=== PATIENT | female | born 1960 | race Caucasian/White ===

== ENCOUNTER 2017-02-24 08:59 | Day surgery (SDC) | payer MEDICARE, MEDICAID ==
[~2017-02-24 08:59] MED LIST: ALBU8.5H2 INHALATION; ALPR0.5T8 PO; AMIT100T2 PO; DULO30CA50 PO; HYDR25TA4 PO; LEVO750T9 PO; Lidocaine Topical 2% 30 mL Jelly ONE; MECL-114 PO; METO25TA6 PO; OMEP40CA36 PO; OXYC1TAB24 PO; PRE20 PO; PREG150C PO; ROTI1PAT8 TOPICAL; TIZA4TAB4 PO; VARE1TAB21 PO
[2017-03-06] MEDS ORDERED: NORE-74 PO (15:46)
[2017-03-06] MEDS ORDERED: HYDR-4003 PO (15:46)
[2017-03-06] MEDS ORDERED: SUMA20SP2 NS (15:46)
== END 2017-02-24 23:59 | disposition home or self-care (01) ==
LOC: END 08:59
PROVIDERS: ATTEND Internal Medicine Gastroenterology
DX: K44.9 Diaphragmatic hernia without obstruction or gangrene (principal); R07.89 Other chest pain

== ENCOUNTER 2017-03-10 07:10 | Day surgery (SDC) | payer MEDICARE, MEDICAID ==
[~2017-03-10] VITALS: Ht 165.1 cm; Wt 105.2 kg
[~2017-03-10 07:10] MED LIST changes: -ALBU8.5H2 INHALATION; -ALPR0.5T8 PO; +HYDR-4003 PO; -HYDR25TA4 PO; -LEVO750T9 PO; +Lactated Ringer's 1,000 ML IV ONE; -Lidocaine Topical 2% 30 mL Jelly ONE; +NORE-74 PO; -OXYC1TAB24 PO; -PRE20 PO; +SUMA20SP2 NS; -VARE1TAB21 PO
[2017-03-10] MEDS ORDERED: Ketamine 10 mg/mL 20 mL Inj ONE (07:11)
[2017-03-10] MEDS ORDERED: Propofol 10,000 mCg/mL 20 mL Inj ONE (07:11)
[2017-03-10 07:48] VITALS: BP 137/81; PULSE 73; RESP 16; O2SAT 100
--- NOTE | 2017-03-10 08:15 | PCM.HPANE ---
Patient Data Date of Service: March 10, 2017 Surgeon Admitting Provider: Attending Provider:Jacob Penaloza MD Primary Care Physician:Danial Daniels MD Other Provider:Mookie Kimbrough Anesthesia Reason for Visit Colon Cancer Screening Ht/WT & BMI Height (Feet): 5 Height (Inches): 5 Weight (Kilograms): 105.23 Body Mass Index 38.00 Allergies Coded Allergies: No Known Allergies (Verified , 03/12/16) Past Anesthesia History Anesthesia History: Denies:: Abnormal Airway, Anesthesia Reactions, Difficult Intubation, Fam Anesthesia Reaction, Fam Malignant Hypertherm, Malignant Hyperthermia Diabetes History Hx Diabetes?: No MRSA MRSA: No Medications Hypertension Medication: No Home Meds Incl Beta Lizzy: Yes Date Beta Lizzy Taken: March 10, 2017 Time Beta Lizzy Taken: 399 Previous Beta Lizzy Dose >24: Previous Dose <24 Hours Active Scripts Metoprolol Tartrate 25 Mg Qdtnnj84 Mg PO BID PRN palpitations #30 TABLET Ref 0 Prov:Baudilio Bryant MD 02/01/16 Reported Medications Sumatriptan 20 Mg Spray50 Mg NS DAILY 03/06/17 Norethindrone AC-Eth Estradiol (Norethind-Eth Estrad 1-0.02 mg)1 Each Tablet1 Each PO DAILY 03/06/17 Hydrocodone-Acetaminophen 5-325 mg 1 Each Tablet1 Tablet PO Q4H PRN For Pain Ref 0 03/06/17 Duloxetine 30 Mg Capsule.dr30 Mg PO DAILY Ref 0 03/12/16 Pregabalin (Lyrica)150 Mg Hujwgeb080 Mg PO BID 30 Days Ref 0 09/25/15 Meclizine (Bonine)25 Mg Tab.chew25 Mg PO QID PRN For Dizziness 09/25/15 Omeprazole 40 Mg Capsule.dr40 Mg PO BID 30 Days Ref 0 03/28/15 Tizanidine 4 Mg Tablet4 Mg PO TID 30 Days 05/28/14 Rotigotine (Neupro)1 Each Patch.td243 Mg TOPICAL DAILY 05/28/14 Amitriptyline 100 Mg Yzwpnj462 Mg PO HS Ref 0 05/28/14 Discontinued Reported Medications Varenicline Tartrate (Chantix)1 Each Tab.ds.pk1 Each PO BID PRN PRN 03/12/16 Alprazolam 0.5 Mg Tablet0.5 Mg PO BID PRN For Anxiety Ref 0 03/12/16 Hydrochlorothiazide 25 Mg Qublrs68 Mg PO DAILY 30 Days Ref 0 03/19/15 Discontinued Scripts Prednisone (PredniSONE)20 Mg Ibiqqm17 Mg PO DAILY 6 Days Ref 0 Prov:Chapito Segovia MD 10/11/16 Albuterol HFA (Proair HFA)8.5 Gm Hfa.aer.ad2 Puffs INHALATION Q4H #1 INHALER Prov:Chapito Segovia MD 10/11/16 Levofloxacin (Levaquin)750 Mg Cghfmj885 Mg PO DAILY #7 TABLET Prov:Chapito Segovia MD 10/11/16 oxyCODONE-Acetaminophen 5-325 mg 1 Each Tablet1-2 Tab PO Q6H PRN For Pain #30 TABLET Prov:Cherrie Donald MD 09/25/15 History History of ENT Problems?: Yes HEENT History: Positive for:: Sinus Problem Denies:: Abnormal Airway Cataracts Difficult Intubation Dysphagia Hearing Problem Denture Type: Full- Upper Partial- Lower Teeth Condition: Within Normal Limits (teeth that are present are intact) Hx of Heart Problems?: Yes Cardiovascular History: Positive for:: Cardiac Surgery (HEART CATH 07/2011-WNL ) Chest Pain (MANY ED VISITS/BOUTS OF CHEST PAIN-ALL TESTING CONSISTENTLY WNL) Edema Hypertension Denies:: AICD Atrial Fibrillation Congestive Heart Failure Heart Murmur (ECHO 05/2014 EF 60-65%) Irregular Heartbeat Pacemaker Thrombophlebitis Valvular Heart Disease Hx of Respiratory Problem?: No Respiratory History: Positive for:: Dyspnea (BESS) Use of C-PAP Machine (EVNA+ SLEEP STUDY 07/2011) Denies:: Asthma COPD Chest Surgery Emphysema Hemoptysis Pneumonia Tuberculosis Hx Neurologic Problems?: Yes Neurological History: Positive for:: Dizziness (HX OF SYNCOPE) Headaches Denies:: Alzheimer's Disease CVA Dementia Parkinson's Disease Seizures Hx of GI Problems?: No Hx of Problems?: No Genitourinary History: Denies:: HX of Hemodialysis Kidney Stones Urinary Tract Infection HX of Peritoneal Dialysis: No Female Hx: Denies:: Currently Endometriosis Pelvic Inflammatory Problems with Breasts? Skin History: Denies:: History Skin Disorders? Pressure Ulcers Hx Musculoskeletal Problems?: Yes Musculoskeletal History: Positive for:: Back Injury (C/OF BACK/NECK PAIN, WEAKNESS IN UPPER EXTREMITIES) Joint Replacement (S/P BILAT TKA'S) Musculoskeletal Trauma (S/P BILAT KNEE SCOPES,FOOT/ANKLE RPR) Hx of Psycho/Social Problems?: Yes Psycho Social History: Positive for:: Anxiety Hx Depression Denies:: Bipolar Disorder Suicide Attempt Hx Surgeries?: Yes (BILAT TKA'S,BILAT KNEE SCOPES,HEART CATH,APPY,XIOMARA, GASTRIC BYPASS,FOOT/ANK) Hx Any Other Health Problems?: Yes Other History: Positive for:: Hospitalization (sinus infection, cp) Denies:: Cancer Endocrine Disease Thyroid Disease History Blood Transfusions: Denies:: Blood Transfuse Reaction Blood Transfusions Hx Diabetes: No Hx Alcohol Use: NoHx Substance Use: Yes (MEDICAL MARIJUANA) Smoking Status: Current Every Day Smoker Light Tobacco Smoker Have You Smoked inLast 12 mo: Yes Stop/Bang Treated for Sleep Apnea?: Yes Do You Have a CPAP Machine?: Yes EVAN Category 4 OutPt Procedure: Yes Risk Assessment Category Category 1A: Patient has history of documented sleep apnea, and HAS NOT received any narcotic, sedative or anesthesia administration during this stay. Category 1B: Patient has history of documented sleep apnea, and HAS received any narcotic , sedative or anesthesia administration during this stay Category 2: Patient has SUSPECTED Obstructive Sleep Apnea, and HAS received any narcotic , sedative or anesthesia administration during this stay. Category 3: Patient has SUSPECTED Obstructive Sleep Apnea and HAS NOT received narcotic, sedative or anesthesia administration during this stay. Category 4: Outpatient in Procedural Areas with known sleep apnea or who screen positive for High Risk via the STOP/BANG questionnaire. Exam Exam Vital Signs Vital Signs Date Time Temp Pulse Resp B/P Pulse Ox O2 Delivery O2 Flow Rate FiO2 03/10/17 07:48 73 16 137/81 100 Room Air General Appearance: Alert, Oriented X3, Cooperative, No Acute Distress HEENT/AIRWAY: MP 2 Lungs: Clear to Auscultation, Normal Air Movement Heart: Exam Unremarkable, Regular Rate/Rhythm, No Murmurs/Rubs/Gallops Meds/Labs/Diagnostics Admission Meds Current Medications Lactated Ringer's (Lr) 1,000 ml @ 10 mls/hr Q24H ONCE IV Last administered on 03/10/17t 07:54; Start 03/10/17 at 06:00; Stop 03/11/17 at 05:59 Plan Impression Patient chart reviewed, patient interviewed and anesthestic plan with risks, benefits, and alternatives discussed, and informed consent obtained. NPO per Anesth. Guidelines: Yes ASA Physical Status: ASA2 Mod Systemic Disease Anesthetic Plan: TIVA Bene/Risks/Altern/Consents: Yes HP Complete Prior to Induction: Yes Mina Shipman MD March 10, 2017 08:15
[2017-03-10 09:01] VITALS: BP 118/78; PULSE 63; RESP 14; O2SAT 100
[2017-03-10 09:12] VITALS: BP 117/69; PULSE 70; RESP 16; O2SAT 95
--- NOTE | 2017-03-10 09:40 | ENDO ---
[address] [address] ENDOSCOPY PROCEDURE PATIENT: FRANSISCO SERRATO : 1960 MR#: [id number] ADMIT: 03/10/2017 JOB ID: [id number] PROCEDURE: Colonoscopy with cold forceps polypectomies. INDICATIONS: A 56-year-old female who reports for colon cancer screening. EQUIPMENT: [id number] SEDATION: Monitored anesthesia is provided by Dr. Papa Shipman. COMPLICATIONS: None identified. BOWEL PREPARATION: Fair, adequate exam. PROCEDURE INFO: After the risks and benefits were explained, written and verbal informed consent was obtained. The patient was brought into the endoscopy suite and placed into the left lateral decubitus position. Sedation was achieved as above. A digital rectal examination accomplished. Mild internal hemorrhoids noted. The scope was introduced into the rectum and advanced to the cecum as identified by the appendiceal orifice and ileocecal valve. The scope was slowly withdrawn to carefully examine the mucosa for any defects or lesions. Multiple direct views were made through the dentate line for exclusion of pathology. The colon was decompressed. The scope removed from the patient who tolerated the procedure well. FINDINGS: There were a couple of diminutive polyps removed with cold forceps from the rectum. There was a moderate internal hemorrhoids with hypertrophied anal papillae. No other significant pathology was identified throughout the colon. ENDOSCOPIC DIAGNOSES: 1. Hemorrhoids. 2. Diminutive rectal polyps. RECOMMENDATIONS: 1. Await histopathology. 2. If adenomatous features are found in either of these polyps then repeat colonoscopy 5 years' time. Otherwise repeat colonoscopy 10 years, sooner as needed.
--- NOTE | 2017-03-10 16:08 | PCM.ANEP1 ---
Post Anesthesia Phase 1 PACU Phase 1 Assessment Date of Service: March 10, 2017 Vital Signs Vital Signs Date Time Temp Pulse Resp B/P Pulse Ox O2 Delivery O2 Flow Rate FiO2 03/10/17 09:12 70 16 117/69 95 Room Air 03/10/17 09:01 36.5 63 14 118/78 100 Room Air Anesthetic Administered: TIVA Level of Alertness: Awake, talking MADDOX's with Equal Strength: Yes Pain: No Nausea or Vomiting: No Cardiovascular Function and Hy: Yes Oxygen Delivery: Room Air Lungs: Clear to Auscultation, Normal Air Movement Dermatome Level: Full Sensation Complications: No Follow up Care: No Mina Shipman MD March 10, 2017 16:08
--- NOTE | 2017-03-11 16:17 | PATH ---
SURGICAL PATHOLOGY Attending Physician:Rafi Steele CASE STATUS: Signed Out PATIENT NAME: FRANSISCO SERRATO PID: [id number] : 1960 DATE COLLECTED:03/10/2017 16:52 SPECIMEN: Rectum, Biopsy CLINICAL HISTORY: POLYP 1). RECTAL POLYPS X2 FINAL DIAGNOSIS: Rectal Polyps, Biopsies: Tubular adenoma x 1; negative for high-grade dysplasia. Hyperplastic polyp x1. ICD10: K63.5 GROSS DESCRIPTION: The specimen is received in one formalin filled container labeled with the patient's name, sublabeled "rectal polyps" and consists of 2 portions of tissue which aggregate to 0.3 x 0.2 x 0.2 CM. The specimen is entirely submitted in one cassette. 03/10/2017 [facility] ICD-9 CODES: CPT CODES: 1: 43510 Electronically Signed Out Lizbeth Gibbs MD [facility] Pathology [facility] [address], [place] [address] Technical component performed at [facility], [facility] [address], [place], [address]
== END 2017-03-10 23:59 | disposition home or self-care (01) ==
LOC: END 07:10
PROVIDERS: ATTEND Internal Medicine Gastroenterology
DX: Z12.11 Encounter for screening for malignant neoplasm of colon (principal); D12.8 Benign neoplasm of rectum; K62.1 Rectal polyp; K64.8 Other hemorrhoids; R07.89 Other chest pain; R14.0 Abdominal distension (gaseous); K21.9 Gastro-esophageal reflux disease without esophagitis; I10 Essential (primary) hypertension; M54.12 Radiculopathy, cervical region; F41.9 Anxiety disorder, unspecified; M79.7 Fibromyalgia; M19.90 Unspecified osteoarthritis, unspecified site; G47.33 Obstructive sleep apnea (adult) (pediatric); G25.81 Restless legs syndrome; F17.210 Nicotine dependence, cigarettes, uncomplicated; F12.90 Cannabis use, unspecified, uncomplicated; Z98.84 Bariatric surgery status; Z96.653 Presence of artificial knee joint, bilateral
CPT/HCPCS: 45380; J7120

== ENCOUNTER 2017-05-20 09:03 | Emergency (ER) | payer MEDICARE, MEDICAID ==
[~2017-05-20] VITALS: Ht 165.1 cm; Wt 109.1 kg
[~2017-05-20 09:03] MED LIST changes: -Lactated Ringer's 1,000 ML IV ONE
[2017-05-20 09:06] VITALS: BP 140/98; PULSE 64; RESP 15; O2SAT 98
--- NOTE | 2017-05-20 09:43 | ED.REPORT ---
HPI-Back Pain 40 and Over Date of Service May 20, 2017 ED Provider: Chapito Segovia M. MD The pt is 57 y/o female w/ a hx of sciatica, fibromyalgia, and arthritis presenting to the ED complaining of RLE pain. She describes the pain as originating in her R hip and radiating down her leg. She is still able to walk on it and describes the pain being similar, but more severe, to her previous episodes of sciatica. The pt has taken Percocet for the pain. Denies weakness, numbness, tingling, dysuria, or incontinence. Roughly a week and a half ago the pt was getting out of her truck, put weight on her R hip, felt it "pop" out of place and popping back in which she suspects caused this episode of pain. Nursing Notes Stated Complaint: DIFFICULTY WALKING/SCIATIC PAIN Chief Complaint: Extremity Trauma Nursing Notes Reviewed: Yes Allergies: Coded Allergies: No Known Allergies (Verified , 03/12/16) Scheduled Amitriptyline (Amitriptyline) 100 Mg Tablet 100 MG PO HS Duloxetine (Duloxetine) 30 Mg Capsule.dr 30 MG PO DAILY Norethindrone AC-Eth Estradiol (Norethind-Eth Estrad 1-0.02 mg) 1 Each Tablet 1 EACH PO DAILY Omeprazole (Omeprazole) 40 Mg Capsule.dr 40 MG PO BID Pregabalin (Lyrica) 150 Mg Capsule 150 MG PO BID Rotigotine (Neupro) 1 Each Patch.td24 3 MG TOPICAL DAILY Sumatriptan (Sumatriptan) 20 Mg [place] 50 MG NS DAILY Tizanidine (Tizanidine) 4 Mg Tablet 4 MG PO TID Scheduled PRN Hydrocodone-Acetaminophen 5-325 mg (Hydrocodone-Acetaminophen 5-325 mg) 1 Each Tablet 1 TABLET PO Q4H PRN PRN For Pain Ibuprofen (Ibuprofen) 600 Mg Tablet 600 MG PO QID PRN PRN For Pain Meclizine (Bonine) 25 Mg Tab.chew 25 MG PO QID PRN PRN For Dizziness Metoprolol Tartrate (Metoprolol Tartrate) 25 Mg Tablet 25 MG PO BID PRN PRN palpitations General Time Seen by MD: 09:42 Chief Complaint Other (RLE pain ) Hx Obtained From: Patient Arrived By: Walk-in Sudden in Onset?: Yes Onset Occurred: 1 week ago Symptom Duration: Since onset Radiation: : Right leg above knee: Right leg below knee Recent Healthcare: No recent hospitalization, Recent doctor visit Similar Sx Previous: Yes Past Medical History Past Medical History Cervical radiculopathy Migraine fibromyalgia, osteoarthritis Obstructive sleep apnea Reports: Hypertension Past Surgical History Reports: Appendectomy, Cholecystectomy Reports: Gastric bypass Family History Noncontributory Smoking History Current Every Day Smoker, Light Tobacco Smoker Social History Alcohol Use: Denies alcohol use Drug Use: Denies drug use, Other Other Social History: Good social support, , Local resident Ambulatory Status Independent Review of Systems Female: Denies: Dysuria, Incontinence Musculoskeletal: Reports: Extremity pain (RLE ) Neurologic: Denies: Numbness (or tingling ), Weakness Complete sys rev & neg: except as marked. Physical Exam Initial Vital Signs Vital Signs (First) Date Time Temp Pulse Resp B/P Pulse Ox O2 Delivery O2 Flow Rate FiO2 05/20/17 09:06 36.2 64 15 140/98 98 Room Air Initial VS: Reviewed Head / Eyes: Atraumatic, Normocephalic, PERRL ENT: Mucous membranes moist, Conjunctiva normal, No scleral icterus Neck: Supple, Non-tender, Full range of motion Skin: Warm, Dry, No cyanosis Psychiatric: Mood/affect normal, Behavior normal, Normal thought content General/Constitutional: Awake, No acute distress Respiratory / Chest: Atraumatic, Breath sounds NL, Breath sounds = bilat, No respiratory distress, No rales, No rhonchi, No wheezing Cardiovascular: Heart rate NL, Regular rhythm, Heart sounds NL, No gallop, No murmurs, No rubs Abdomen: Atraumatic, Soft, Non-tender Back: No midline vertebral tend, No CVA tenderness Positive straight leg raise test on the right at 45 degrees Neurologic: Oriented X3, Speech NL Interpretation & Diagnostics Lab Results Interpretation Test 05/20/17 09:30 Urine Color Straw (YELLOW) Urine Appearance Hazy (CLEAR,HAZY) Urine pH 7.5 (5.0-8.0) Urine Specific [place] 1.010 (1.003-1.035) Urine Protein Negativemg/dL (NEG,TRACE) Urine Glucose (UA) Negativemg/dL (NEGATIVE) Urine Ketones Negativemg/dL (NEGATIVE) Urine Occult Blood Small (NEGATIVE) Urine Nitrite Negative (NEGATIVE) Urine Bilirubin Negative (NEGATIVE) Urine Urobilinogen Normalmg/dL (NORMAL) Urine Leukocyte Esterase Negative (NEGATIVE) Urine RBC 3-10/hpf (0-2) Urine WBC 0-5/hpf (0-5) Urine Epithelial Cells Occasional/hpf (NONE-MOD) Urine Crystals None seen (NONE SEEN) Urine Bacteria Moderate/hpf (NONE-FEW) Urine Hyaline Casts None/lpf (NONE) Urine Granular Casts None seen (NONE SEEN) Urine Waxy Casts None seen (NONE SEEN) Urine Red Blood Cell Casts None seen (NONE SEEN) Urine White Blood Cell Casts None seen (NONE SEEN) Urine Mucus None seen (None Seen) Urine Trichomonas None seen (NONE SEEN) Urine Yeast None (NONE SEEN) Urinalysis Comment None Urine Culture Reflexed Indicated Hold Urine Received (Received) X-Ray Interpretation Xray Interpretation: IMPRESSION: Mild degenerative changes of the right hip without acute fracture. Dictated by: Carlos Quiroz M.D. on 05/20/2017 at 10:33 Approved by: Carlos Quiroz M.D. on 05/20/2017 at 10:34 X-Ray Ordered: Hip right Re-Eval/Medical Decision Med Decision/Clinical Course 87-year-old female long history of sciatica presenting complaining of sciatica 1 week. She reports right low back pain radiating down the back of her right thigh. She denies any urinary symptoms. She does report falling onto her right hip recently. She has long history of right hip problems. I will put her hip doctor as well as her doctor for back pain. She had no midline tenderness. Her hip is full range of motion. Her straight leg raise is positive on the right at 45. He was negative for infection. Likely sciatica. Her pain improved significantly with Toradol. She is discharged home with return precautions and follow-up as scheduled. Return if any worsening pain, fevers, nausea vomiting, difficulty ambulating, weakness numbness tingling, incontinence any other new or worsening symptoms Source of Hx: Old records Re-Evaluation/Progress : Time of Eval: 11:45 Re-Evaluation/Progress Note: Pt rechecked. Informed pt of plan for treatment. Pt understands and agrees with plan for treatment. F/U instructions and RTER warnings given. All questions addressed. Counseled Regarding: Diagnosis, Lab results, Need for follow-up, When/why to return to ED Discharge & Departure Impression: Primary Impression: Sciatica Laterality: right Qualified Code: M54.31 - Sciatica, right side Additional Impression: Hematuria Disposition: Home Discharge Condition All VS Reviewed: Yes Condition: Stable Additional Instructions: Thank for you entrusting us with your care today. You were diagnosed with sciatica and hematuria. Follow up with your primary care provider in 2-3 days for re-evaluation and possible physical therapy referral. Use the Ibuprofen as needed for the pain. Please return to the emergency department if you experience any new or worsening pain, incontinence, weakness, numbness, tingling, nausea or vomiting. I hope you feel better soon. Referrals: Danial Daniels MD (PCP) Scribe Attestation Portions of this note were transcribed by Delio Penny. I, Dr. Segovia personally performed the history, physical exam and medical decision-making; I reviewed and confirmed the accuracy of the information in the transcribed note. Signed by: Caro Maharaj, 05/20/17 and 5530. copies to: Danial Daniels MD, Ben M MD May 20, 2017 09:43 Delio Penny May 20, 2017 11:39
[2017-05-20 10:12] LABS: APPEARANCE,URINE HAZY (CLEAR,HAZY); COLOR,URINE STRAW (YELLOW)
[2017-05-20 10:13] LABS: OCCULT BLOOD,URINE SMALL (NEGATIVE); PH,URINE 7.5 (5.0-8.0); UROBILINOGEN,URINE NORMAL (NORMAL)
[2017-05-20] MEDS ORDERED: IBUP-1827 PO (11:05)
--- NOTE | 2017-05-20 11:36 | DRSVH ---
PROCEDURE: X-RAY RIGHT HIP COMPLETE, MINIMUM TWO VIEWS ([id number]) INDICATIONS: trauma Right hip pain TECHNIQUE: 2 views of the hip were acquired. COMPARISON: [facility], CR, XR CHEST 1VW (PORTABLE), 10/11/2016, 9:55. FINDINGS: Bones: No fractures or dislocations. No suspicious bony lesions. The visualized pelvic ring appear s intact. There are at least mild degenerative changes of the right hip. There may be degenerative cystic changes along the inferior margin of the femoral head. Mild degenerative changes of the pubis symphysis and right sacroiliac joint are noted. Soft tissues: No suspicious soft tissue calcifications or masses. Scattered phleboliths within the pelvis are present. IMPRESSION: Mild degenerative changes of the right hip without acute fracture. Dictated by: Carlos Quiroz M.D. on 05/20/2017 at 10:33 Approved by: Carlos Quiroz M.D. on 05/20/2017 at 10:34
[2017-05-20 12:01] VITALS: BP 130/80; PULSE 56; RESP 16; O2SAT 97
[2017-05-20 12:13] VITALS: BP 130/80; PULSE 56; RESP 16; O2SAT 97
== END 2017-05-20 12:14 | disposition home or self-care (01) ==
LOC: SED 09:03
DX: M54.31 Sciatica, right side (principal); R31.9 Hematuria, unspecified; M79.7 Fibromyalgia; M19.90 Unspecified osteoarthritis, unspecified site; M54.12 Radiculopathy, cervical region; I10 Essential (primary) hypertension; F17.200 Nicotine dependence, unspecified, uncomplicated; Z98.84 Bariatric surgery status
CPT/HCPCS: 73502; 81000; 87086; 87088; 96372; 99284; J1885